=== PATIENT | female | born 1985 | race Two or more races ===

== ENCOUNTER 2023-05-29 16:32 | Inpatient (IN) | payer OTHER ==
[~2023-05-29] VITALS: Ht 154.9 cm; Wt 72.6 kg
--- NOTE | 2023-05-29 16:48 | NUR ---
PTE ALERTA Y ORIENTADA X3 REFIERE VENIR A KARIN DEBIDO A QUE LA MISMA ESTA RECIBIO RESULTADOS DE HEMOGLOBINA EN (4.40). AL MOMENTO PTE NO ESTA [place]. SE GAEL S/V Y SE COLOCA EN OBSERVACION.
--- NOTE | 2023-05-29 18:30 | NUR ---
PTE EVALUADA POR DR. EILEEN MONTESIEN [place] [facility]. JACQUELINE BRO ORIENTA A PTE ACERCA DEL MISMO, SE GAEL MUESTRAS DE LAB Y SE CANALIZA BAJO MEDIDAS ASEPTICAS.
[2023-05-29 18:49] LABS: MEAN CORPUSCULAR HGB CONC 27.8 g/dl (32.0-36.0); PLATELET COUNT 487 K/uL (150-450); RED BLOOD COUNT 3.17 M/uL (4.00-6.00); RED CELL DISTRIBUTION WIDTH 21.5 % (11.5-14.5)
[2023-05-29 18:52] LABS: MEAN CELL VOLUME 50.9 fL (80.00-100.00); MEAN CORPUSCULAR HEMOGLOBIN 14.1 pg (27.00-32.0)
[2023-05-29 18:53] LABS: PH,URINE 7.5 (5.0-8.0); URINE APPEARANCE Clear; URINE BILIRRUBIN Negative (NEGATIVE); URINE BLOOD Negative; URINE COLOR Yellow; URINE GLUCOSE Negative (NEGATIVE); URINE LEUKOCYTE Negative; URINE NITRATE Negative; URINE PROTEIN Negative (NEGATIVE); URINE UROBILINOGEN 0.2 E.U./dl
[2023-05-29 18:54] LABS: HEMATOCRIT 16.1 % (36.0-45.00)
[2023-05-29 18:55] LABS: HEMOGLOBIN 4.5 g/dL (12.0-15.00)
[2023-05-29 18:57] LABS: URINE BACTERIA 6.2 uL (0.0-1933); URINE EPITHELIAL CELLS 1.8 uL (0.0-38.8)
[2023-05-29 19:05] LABS: INR 1.03; PARTIAL THROMBOPLASTIN TIME 24.5 SECONDS (22.0-34.0); PROTHROMBIN TIME 10.8 SECONDS (9.0-11.5)
[2023-05-29 19:07] LABS: URINE RBC 1.5 uL (0.0-20.8); URINE WBC 0 uL (0.0-23.2)
[2023-05-29 19:10] LABS: ALBUMIN 3.6 gm/dL (3.4-5.0); ALKALINE PHOSPHATASE 66 U/L (50-136); ALT/SGPT 19 U/L (12-78); ANION GAP 6 (10.0-20.0); AST/SGOT 12 U/L (15-37); BILIRUBIN TOTAL 0.27 mg/dL (0.3-1.2); BILIRUBIN,CONJUGATED < 0.10 mg/dL (0.0-0.2); BILIRUBIN,UNCONJUGATED 0.17 mg/dL (0.0-0.6); BLOOD UREA NITROGEN 9 mg/dL (7-18); BUN CREA RATIO 11 (7.0-25.0); CARBON DIOXIDE 27 mEq/L (21-32); CHLORIDE 108 mmol/L (98-107); CREATININE SERUM 0.81 mg/dL (0.55-1.02); GFR 80.46; GLOBULINA 5.1 G/DL (2.4-3.5); GLUCOSE FASTING 95 mg/dL (65-100); OSMOLALITY SERUM 272 MOSM/KG (275-295); POTASSIUM 3.67 mEq/L (3.5-5.1); SODIUM 137 mmol/L (136-145); TOTAL PROTEIN 8.7 gm/dL (6.4-8.2)
[2023-05-29] MEDS ORDERED: 0.9 % SODIUM CHLORIDE 1,000 ML IV SCH (21:45)
[2023-05-29 22:39] LABS: FERRITIN 0.6 NG/ML (8-252)
[2023-05-30 04:03] LABS: MEAN CORPUSCULAR HGB CONC 26.1 g/dl (32.0-36.0); PLATELET COUNT 467 K/uL (150-450); RED BLOOD COUNT 3.35 M/uL (4.00-6.00)
[2023-05-30 04:04] LABS: HEMOGLOBIN 4.4 g/dL (12.0-15.00); MEAN CORPUSCULAR HEMOGLOBIN 13.1 pg (27.00-32.0)
[2023-05-30 04:07] LABS: MEAN CELL VOLUME 50.8 fL (80.00-100.00)
[2023-05-30] MEDS ORDERED: FAMOTIDINE/PF 20 MG/2 ML VIAL IV SCH (09:00)
[2023-05-30] MEDS ORDERED: SOD FERRIC GLUC COMPLX/SUCROSE 125 MG in 0.9 % SODIUM CHLORIDE 100 ML IV SCH (09:00)
[2023-05-30 20:20] LABS: PLATELET COUNT 353 K/uL (150-450)
[2023-05-30 20:24] LABS: HEMATOCRIT 24.5 % (36.0-45.00); HEMOGLOBIN 7.5 g/dL (12.0-15.00); MEAN CELL VOLUME 62.7 fL (80.00-100.00); MEAN CORPUSCULAR HEMOGLOBIN 19.2 pg (27.00-32.0); MEAN CORPUSCULAR HGB CONC 30.7 g/dl (32.0-36.0); RED CELL DISTRIBUTION WIDTH 35.4 % (11.5-14.5)
[2023-05-31 07:55] LABS: MEAN CORPUSCULAR HGB CONC 31.4 g/dl (32.0-36.0); PLATELET COUNT 311 K/uL (150-450); RED BLOOD COUNT 3.93 M/uL (4.00-6.00)
[2023-05-31 08:03] LABS: CALCIUM 8.5 mg/dL (8.5-10.1); CREATININE SERUM 0.57 mg/dL (0.55-1.02); GFR 120.7; MAGNESIUM 2.2 mg/dL (1.8-2.4); PHOSPHOROUS 2.9 mg/dL (2.5-4.9); POTASSIUM 3.7 mEq/L (3.5-5.1)
[2023-05-31 08:08] LABS: HEMATOCRIT 24.5 % (36.0-45.00); HEMOGLOBIN 7.7 g/dL (12.0-15.00); MEAN CELL VOLUME 62.3 fL (80.00-100.00); MEAN CORPUSCULAR HEMOGLOBIN 19.5 pg (27.00-32.0); RED CELL DISTRIBUTION WIDTH 35.6 % (11.5-14.5)
[2023-06-01 07:49] LABS: HEMATOCRIT 24.8 % (36.0-45.00); PLATELET COUNT 310 K/uL (150-450); RED BLOOD COUNT 3.91 M/uL (4.00-6.00)
[2023-06-01 07:56] LABS: HEMOGLOBIN 7.7 g/dL (12.0-15.00); MEAN CELL VOLUME 63.4 fL (80.00-100.00); MEAN CORPUSCULAR HEMOGLOBIN 19.6 pg (27.00-32.0); RED CELL DISTRIBUTION WIDTH 35.8 % (11.5-14.5)
[2023-06-01 08:09] LABS: CALCIUM 8.5 mg/dL (8.5-10.1); CREATININE SERUM 0.57 mg/dL (0.55-1.02); GFR 120.7; MAGNESIUM 2.3 mg/dL (1.8-2.4); POTASSIUM 3.81 mEq/L (3.5-5.1)
[2023-06-01 13:06] LABS: ob NEGATIVE (NEGATIVE)
[2023-06-01] MEDS ORDERED: ACETAMINOPHEN 500 MG GEL..CAP PO PRN (17:00)
[2023-06-02 11:27] LABS: HEMATOCRIT 34.3 % (36.0-45.00); HEMOGLOBIN 11.1 g/dL (12.0-15.00); MEAN CELL VOLUME 70.7 fL (80.00-100.00); MEAN CORPUSCULAR HEMOGLOBIN 22.9 pg (27.00-32.0); MEAN CORPUSCULAR HGB CONC 32.4 g/dl (32.0-36.0); PLATELET COUNT 279 K/uL (150-450); RED BLOOD COUNT 4.84 M/uL (4.00-6.00)
[2023-06-02 11:28] LABS: RED CELL DISTRIBUTION WIDTH 36.5 % (11.5-14.5)
[2023-06-02] MEDS ORDERED: IRON325 MG PO (12:49)
[2023-06-02] MEDS ORDERED: INTEGRA PLUS C1 EACH PO (12:49)
== END 2023-06-02 14:20 | disposition home or self-care (01) | DRG 812 ==
LOC: ER 16:32 → MEDI 22:06 → OB/GYN 22:06 → ICU 05-30 13:11 → OB/GYN 05-31 13:30
PROVIDERS: Emergency Medicine; Internal Medicine; Obstetrics & Gynecology; ADMIT Internal Medicine; ATTEND Internal Medicine
PROC: 30233N1 Transfusion of Nonautologous Red Blood Cells into Peripheral Vein, Percutaneous Approach (ICD-10-PCS; principal; 2023-05-30)
PROC: BW21YZZ Computerized Tomography (CT Scan) of Abdomen and Pelvis using Other Contrast (ICD-10-PCS; 2023-05-30)
PROC: BU4CZZZ Ultrasonography of Uterus and Ovaries (ICD-10-PCS; 2023-05-30)
DX: D50.9 Iron deficiency anemia, unspecified (principal); D50.0 Iron deficiency anemia secondary to blood loss (chronic); N92.0 Excessive and frequent menstruation with regular cycle; D58.0 Hereditary spherocytosis; D75.839 Thrombocytosis, unspecified; N93.9 Abnormal uterine and vaginal bleeding, unspecified